=== PATIENT | male | born 1980 | race African-American/Black ===

== ENCOUNTER 2017-06-15 05:05 | Emergency (ER) | payer MEDICAID ==
[~2017-06-15] VITALS: Ht 185.4 cm; Wt 86.2 kg
--- NOTE | 2017-06-15 05:05 | NUR ---
PATIENT BIB BLS TO ER BED 2.
--- NOTE | 2017-06-15 05:05 | NUR ---
Enzo [email or web address] in ED - 06/15/17 at 1033 by [email or web address] PATIENT BIB BLS TO ER BED 3.
[2017-06-15 05:12] VITALS: BP 135/58
--- NOTE | 2017-06-15 05:12 | NUR ---
Pt presents to ED from EMS. Pt called 911 from home for sternal and left sided chest pain 01/26. Pt VSS upon arrival and ambulatory. Pt denies SOB, Dyspnea, N/V. A&Ox4. ER MD at bedside for assessment. Continue to monitor.
--- NOTE | 2017-06-15 05:25 | NUR ---
Provided Pt with food, water, Juice.
--- NOTE | 2017-06-15 06:35 | NUR ---
Pt left hospital without discharge paperwork. ER made aware.
== END 2017-06-15 06:35 | disposition left against medical advice (07) ==
LOC: MED 05:05
DX: S46.812A Strain of other muscles, fascia and tendons at shoulder and upper arm level, left arm, initial encounter (principal); S20.212A Contusion of left front wall of thorax, initial encounter; X58.XXXA Exposure to other specified factors, initial encounter; Y93.89 Activity, other specified; Y92.89 Other specified places as the place of occurrence of the external cause; Y99.8 Other external cause status
CPT/HCPCS: 93005; 99283